=== PATIENT | male | born 1940 ===

== ENCOUNTER 2016-06-04 13:12 | Inpatient (IN) | payer MEDICARE ==
[2016-06-04 13:13] VITALS: BMI 31.7
[2016-06-04 13:58] LABS: BASO # 0.1 K/uL (0.0-0.2); BASO % 0.6 % (0.0-2.0); EOS # 0.1 K/uL (0.0-0.7); EOS % 0.8 % (0.0-4.0); HEMATOCRIT 41.2 % (35.0-51.0); LYMPH # 1.4 K/uL (1.0-4.3); LYMPH % 12.4 % (20.0-40.0); MEAN CELL VOLUME 90.8 fl (80.0-94.0); MEAN CORPUSCULAR HEMOGLOBIN 30.2 pg (27.0-31.0); MEAN CORPUSCULAR HGB CONC 33.3 g/dL (33.0-37.0); MEAN PLATELET VOLUME 10.7 fl (7.2-11.7); MONO # 0.7 K/uL (0.0-0.8); MONO % 6.4 % (0.0-10.0); NEUT % 79.8 % (50.0-75.0); RED CELL DISTRIBUTION WIDTH 13.2 % (11.5-14.5); WHITE BLOOD COUNT 11.3 K/uL (4.8-10.8)
[2016-06-04 14:04] LABS: ALB/GLOB RATIO 1.2 (1.0-2.1); ALKALINE PHOSPHATASE 88 U/L (38-126); ALT/SGPT 24 U/L (21-72); AST/SGOT 31 U/L (17-59); BILIRUBIN,TOTAL 1.3 mg/dl (0.2-1.3); BLOOD UREA NITROGEN 12 mg/dl (9-20); CALCIUM 9.3 mg/dL (8.4-10.2); CARBON DIOXIDE 27 mmol/L (22-30); CHLORIDE 102 mmol/L (98-107); GFR AFRICAN-AMERICAN > 60; GLUCOSE,RANDOM 108 mg/dL (75-110); POTASSIUM 3.6 MMOL/L (3.6-5.0); SODIUM 143 mmol/l (132-148); TOTAL PROTEIN 7.5 G/DL (6.3-8.2)
[2016-06-04 14:22] LABS: PARTIAL THROMBOPLASTIN TIME 25.4 SECONDS (23.3-32.5)
--- NOTE | 2016-06-04 14:52 | ED PDOC ---
HPI: Chest Pain Time Seen by Provider: 06/04/16 13:27 Chief Complaint (Nursing): Chest Pain Chief Complaint (Provider): Chest pain History Per: Patient, Family History/Exam Limitations: no limitations Onset/Duration Of Symptoms: Days (2) Current Symptoms Are (Timing): Intermittent Episodes Quality: Pressure Associated Symptoms: Dyspnea Additional Complaint(s): Pt reports intermittent pressure-like chest pain X 2 days, associated with nausea and intermittent SOB. Denies fever, cough, vomiting. Had echo done on . PMD: Dr. Calles Quenching Machine Operator: Dr. Masterson Past Medical History Reviewed: Nursing Documentation, Vital Signs Vital Signs: Last Vital Signs Temp 98.7 F 06/04/16 13:22 Pulse 76 06/04/16 13:22 Resp 16 06/04/16 13:22 BP 155/71 H 06/04/16 13:22 Pulse Ox 100 06/04/16 13:22 - Medical History PMH: Arthritis, Diabetes, HTN Denies: Chronic Kidney Disease - Surgical History Surgical History: Appendectomy (165) - Family History Family History: States: Hypertension - Living Arrangements Living Arrangements: With Family - Social History Current smoker - smoking cessation education provided: No Alcohol: None - Immunization History Hx Tetanus Toxoid Vaccination: No Hx Influenza Vaccination: No Hx Pneumococcal Vaccination: Yes - Home Medications Home Medications: Ambulatory Orders Medication Instructions Recorded metFORMIN [glucOPHAGE] 1,000 mg PO DAILY 07/28/14 amLODIPine [Norvasc] 10 mg PO DAILY #30 tab 07/31/14 - Allergies Allergies/Adverse Reactions: Allergies Allergy/AdvReac Type Severity Reaction Status Date / Time No Known Allergies Allergy Verified 06/04/16 13:26 KRYSTAL Risk Score for UA/NSTEMI - KRYSTAL Risk Score Age > 64: YES 3 or more CAD Risk Factors: YES Known CAD (Stenosis greater than 50%): YES Aspirin use in past 7 days: YES Severe Angina: NO EKG ST changes greater than 0.5mm: NO Positive Cardiac Marker: NO KRYSTAL Score: 4 Risk %: 20% Review of Systems Constitutional: Negative for: Fever, Chills Cardiovascular: Positive for: Chest Pain. Negative for: Palpitations Respiratory: Positive for: Shortness of Breath. Negative for: Cough Gastrointestinal: Positive for: Nausea. Negative for: Vomiting, Abdominal Pain , Diarrhea Musculoskeletal: Negative for: Neck Pain, Back Pain Neurological: Negative for: Headache Physical Exam - Reviewed Nursing Documentation Reviewed: Yes Vital Signs Reviewed: Yes - Physical Exam Appears: Positive for: Well, No Acute Distress Skin: Positive for: Normal Color, Warm, Dry Eye Exam: Positive for: Normal appearance, EOMI, PERRL Cardiovascular/Chest: Positive for: Regular Rate, Rhythm, Murmur Respiratory: Positive for: Normal Breath Sounds. Negative for: Rales, Stridor, Wheezing Gastrointestinal/Abdominal: Positive for: Normal Exam Extremity: Positive for: Normal ROM Neurologic/Psych: Positive for: Alert, office lead II-XII, Oriented. Negative for: Motor/Sensory Deficits - Laboratory Results Result Diagrams: 06/04/16 13:45 06/04/16 13:45 - ECG Interpretation Of ECG: NSR @ 74, no ST-T changes. O2 Sat by Pulse Oximetry: 100 Pulse Ox Interpretation: Normal - Radiology X-Ray: Read By Radiologist (Mild hazy opacities the lung bases. If indicated, PA and lateral chest radiographs can be obtained.) - Progress ED Course And Treament: Pt administered ASA 325 mg PO and Morphine 2 mg IV. - Physician Consult Information Physician Contacted: Reagan Masterson Outcome Of Conversation: Case discussed, Dr. Alonso for cardiac cath. Medical Decision Making Medical Decision Makin yo with chest pain. - labs - EKG - CXR Accession No. : [id number] Patient Name / ID : CAMERON NEFF / [id number] Exam Date : 05/23/2016 00:00:00 ( Approved ) Study Comment : Sex / Age : M / 75Y Creator : Alek Nam Dictator : Pre Fabricator : Drill Press Operator Numerical Control : Magdaleno Augustin Approver2 : Report Date : 05/23/2016 13:24:31 My Comment : APPROVED REPORT Protocol: LEXISCAN Test Type: Persantine Echo Medications: Prednisome 5mg, Vit D 92224 unit, Tramcinolone .1%, Losartan 100mg, Amlodipine 10mg, Meloxicam 15mg, Tamsulosin 0.4mg, Metformin ER 1000mg, Metanx, Miralax, Gabapentin 800mg, Voltarn 1%, Medical History: Hypertension, Diabetes, BPH, Carpal Tunnel Surgery, Appedectomy, Former Smoker, Arthirits, Leg pain, Vit D Deficiency, Target HR: 144 bpm Resting Heart Rate: 67 bpm Resting Blood Pressure: 152/71mmHg submaximum (85%): 122 bpm TEST SUMMARY PREINJECT PRE-INJEC 27:56 0.0 0.0 1.0 67 152/71 . 0 . INJECTION LEXISCAN 00:20 0.0 0.0 1.0 67 146/69 . 0 . INJECTION NS FLUSH 00:20 0.0 0.0 1.0 76 146/69 . 0 . INJECTION NUC MED 00:20 0.0 0.0 1.0 83 146/69 . 0 . RECOVERY POSTINJEC 03:37 0.0 0.0 1.0 78 116/60 . 0 . PROCEDURE Pharmacologic stress testing was performed using 0.4mg per 5ml of regadenoson given intravenously over 7-10 seconds. Reversal agent aminophyline 75 mg, given intravenously for Chest Pressure POST EXERCISE Reason for Termination: lexiscan Target HR: No Max HR: 83 bpm 59% of Maximum Predicted HR: 144 bpm Exercise duration: 01:00 min:sec, 0 Stage Exercise capacity: 1.0METs Max Blood Pressure: 158/85mmHg Chest Pain: Yes, Angina index: 0 Arrhythmia: Yes, ST Change: Yes, Deviation: 0 mm Stress EKG Interpretation Is a 75-year-old male undergoing a Lexiscan His resting EKG was normal. His resting heart rate was 67 bpm and his resting blood pressure was 152/71. The patient was injected with Lexiscan 0.4 mg IV followed by 30 mCi of Myoview. The procedure risks the patient experienced some mild chest pain which was alleviated by 75 mg of Aminophyllin 30 minutes later stress imaging was taken EXAM: Myocardial Perfusion REST/STRESS Image QualityGood Imaging Protocol The imaging protocol used to acquire images was Rest Tc-99m/stress Tc-99m 1 day Rest Spect myocardial perfusion imaging was performed in supine position 40 minutes following the injection of 10 mCi of Tc-99 Myoview. Time of rest injection: 8:49 Time of rest imagin:25 At peak stress, the patient was injected intravenously with 30mCi of Tc-99 tetrofosmin after an infusion time of minutes and seconds. Time of stress injection: 10:50 Time of stress imagin:50 Gated Stress Spect was performed 60 minutes after intravenous Tc-99 Myoview injection. The images were gated to evaluate regional wall motion and calculate ventricular ejection fraction. CONCLUSION 1. There is mild decreased perfusion in the inferior wall and a small area of the apical wall on stress imaging with near total reperfusion on resting imaging 2. Gated imaging shows good contractility of the powell of the left ventricle with an ejection fraction of 61%. 3. Conclusion: Abnormal Lexiscan with inferior wall and apical ischemia Accession No. : [id number] Patient Name / ID : CAMERON NEFF / [id number] Exam Date : 05/23/2016 09:16:12 ( Approved ) Study Comment : Sex / Age : M / 75Y Creator : Randall Crow Dictator : Pre Fabricator : Drill Press Operator Numerical Control : REAGAN Campbell Approver2 : Report Date : 05/23/2016 09:39:52 My Comment : APPROVED REPORT EXAM: Two-dimensional and M-mode echocardiogram with Doppler and color Doppler. Other Information Quality : Good Rhythm : NSR INDICATION ICD: R07.9 2D DIMENSIONS IVSd 1.03 (0.7-1.1cm) LVDd 5.19 (3.9-5.9cm) LVOT Diameter 2.50 (1.8-2.4cm) PWd 0.67 (0.7-1.1cm) IVSs 1.09 (0.8-1.2cm) LVDs 3.96 (2.5-4.0cm) FS (%) 23.7 % PWs 1.23 (0.8-1.2cm) M-Mode DIMENSIONS Left Atrium (MM) 3.31 (2.5-4.0cm) IVSd 1.03 (0.7-1.1cm) Aortic Root 3.41 (2.2-3.7cm) LVDd 5.86 (4.0-5.6cm) Aortic Cusp Exc. 2.75 (1.5-2.0cm) PWd 0.96 (0.7-1.1cm) IVSs 1.16 cm FS (%) 25 % LVDs 4.40 (2.0-3.8cm) PWs 1.42 cm Aortic Valve AI P 1/2 Time 488ms Mitral Valve MV E Velocity 83.0cm/s MV DECEL TIME 259ms MV A Velocity 76.4cm/s MV PHT 75ms E/A ratio 1.1 MVA (PHT) 2.93cm2 TDI Lateral E' Peak V 7.74cm/s Medial E' Peak V 7.50cm/s E/Lateral E' 10.7 E/Medial E' 11.1 Pulmonary Valve PV Peak Velocity 105.1cm/s Tricuspid Valve TR Peak Velocity 192cm/s RAP ESTIMATE 10mmHg TR Peak Gr. 15mmHg RVSP 25mmHg LEFT VENTRICLE The left ventricle is normal size. There is mild concentric left ventricular hypertrophy. The left ventricular function is normal. The left ventricular ejection fraction is within the normal range. LVEF 65%. There is normal LV segmental wall motion. The left ventricular diastolic function is normal. No left ventricle thrombus noted on this study. There is no ventricular septal defect visualized. There is no left ventricular aneurysm. There is no mass noted in the left ventricle. RIGHT VENTRICLE The right ventricle is normal size. There is normal right ventricular wall thickness. The right ventricular systolic function is normal. ATRIA The left atrium size is normal. The right atrium size is normal. The interatrial septum is intact with no evidence for an atrial septal defect. AORTIC VALVE The aortic valve is moderately thickened but opens well. There is mild to moderate aortic regurgitation. There is no aortic valvular stenosis. There is no aortic valvular vegetation. MITRAL VALVE The mitral valve is normal in structure and function. There is no evidence of mitral valve prolapse. There is no mitral valve stenosis. There is no mitral valve regurgitation noted. TRICUSPID VALVE The tricuspid valve is normal in structure and function. There is trace to mild tricuspid regurgitation. There is no tricuspid valve prolapse or vegetation. There is no tricuspid valve stenosis. PULMONIC VALVE The pulmonary valve is normal in structure and function. There is no pulmonic valvular regurgitation. There is no pulmonic valvular stenosis. GREAT VESSELS The aortic root is normal in size. The IVC is normal in size and collapses >50% with inspiration. PERICARDIAL EFFUSION The pericardium appears normal. There is no pleural effusion. <Conclusion> The aortic valve is moderately thickened but opens well. There is mild to moderate aortic regurgitation. The left ventricle is normal size. There is mild concentric left ventricular hypertrophy. The left ventricular function is normal. The left ventricular ejection fraction is within the normal range. LVEF 65%. Accession No. : [id number] Patient Name / ID : CAMERON NEFF / [id number] Exam Date : 05/23/2016 10:18:04 ( Approved ) Study Comment : Sex / Age : M / 75Y Creator : Chanell Pang Dictator : Pre Fabricator : Drill Press Operator Numerical Control : REAGAN Campbell Approver2 : Report Date : 05/25/2016 10:32:52 My Comment : APPROVED REPORT Reason for Test: R07.9 Hookup date: 2016-05-23 Removal date: 2016-05-24 Scan date: 2016-05-25 Recording time: 21 HR 55 MIN Heart Rate Data Total Beats: [id number] Min HR: 56 BPM at 4:30PM Avg HR: 77 BPM Max HR: 119 BPM at 2:48AM Ventricular Ectopy Total VE Beats: 4963 (4.9%) Triplets: 2 Events Couplets: 22 Events Single/Interp PVC: 2903/0 Single/Late VE's: 818/0 Bi/Trigeminy: 945/247 Beats Supraventricular Ectopy Total VE Beats: 38 (0.0%) Atrial Runs: 1 Beats: 4 Longest: 4 Fastest: 164 BPM Atrial Pairs: 1 Events Longest R-R: 1.4 sec at 7:03 AM Single PAC's: 32 Conclusion SINUS RHYTHM / SINUS BRADYCARDIA / SINUS TACHYCARDIA MINIMUM HR 56 BPM MAXIMUM HR 119 BPM ISOLATED APC'S, PAIRED, 1 RUN 4 BEATS, 164 BPM FREQUENT VPC'S, ISOLATED PAIRED, BIGEMINY, 2 TRIPLETS THERE WERE NO DIARY ENTRIES. Disposition - Clinical Impression Clinical Impression: Acute chest pain - Patient ED Disposition Is Patient to be Admitted: Yes - Disposition Disposition Time: 14:56 Condition: GUARDED - Pt Status Changed To: Hospital Disposition Of: Inpatient - Admit Certification Admit to Inpatient:: After my assessment, the patient will require hospitalization for at least two midnights. This is because of the severity of symptoms shown, intensity of services needed, and/or the medical risk in this patient being treated as an outpatient. - POA Present On Arrival: None
--- NOTE | 2016-06-04 14:54 | RAD ---
HISTORY: CP COMPARISON: No prior. FINDINGS: LUNGS: Mild hazy opacities at the lung bases. PLEURA: No significant pleural effusion identified, no pneumothorax apparent. CARDIOVASCULAR: Normal. OSSEOUS STRUCTURES: The osseous structures demonstrate degenerative changes. Sclerotic density overlying the right scapula. VISUALIZED UPPER ABDOMEN: Upper abdomen is suboptimally evaluated. OTHER FINDINGS: None. IMPRESSION: Mild hazy opacities the lung bases. If indicated, PA and lateral chest radiographs can be obtained.
--- NOTE | 2016-06-04 16:02 | CP.PCM.HP ---
History of Present Illness - History of Present Illness History of Present Illness: 75 yo male with history of DM2, HTN and CVA came in because of on and off chest pain radiating to the neck and both arms and hands since yesterday. Chest pain was described as tightening of the chest lasting for about 10 minutes then spontaneously getting relieved. He claimed he had 4 episodes since yesterday. He also noted getting nape pain during this episode. When he checked his BP, it was up to 240/140 which prompted to get in the ER. Patient claimed he is scheduled for a cardiac cath tomorrow with Dr Alonso. Present on Admission - Present on Admission Any Indicators Present on Admission: No History of DVT/PE: No History of Uncontrolled Diabetes: No Urinary Catheter: No Decubitus Ulcer Present: No Review of Systems - Review of Systems All systems: reviewed and no additional remarkable complaints except (aside from those mentioned above, 12 point system review were negative by me) Past Patient History - Past Medical History & Family History Past Medical History?: Yes - Past Social History Smoking Status: Never Smoked Chewing Tobacco Use: No Cigar Use: No Alcohol: Social - CARDIAC Hx Cardiac Disorders: Yes Hx Hypertension: Yes - PULMONARY Hx Respiratory Disorders: No - NEUROLOGICAL HX 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) - HEENT Hx HEENT Problems: Yes Other/Comment: 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 - RENAL Hx Chronic Kidney Disease: No - ENDOCRINE/METABOLIC Hx Diabetes Mellitus Type 2: Yes - HEMATOLOGICAL/ONCOLOGICAL Hx Blood Disorders: No - INTEGUMENTARY Hx Dermatological Problems: No - MUSCULOSKELETAL/RHEUMATOLOGICAL Hx Arthritis: Yes - GASTROINTESTINAL Hx Gastrointestinal Disorders: No - GENITOURINARY/GYNECOLOGICAL Hx Genitourinary Disorders: No - PSYCHIATRIC Hx Psychophysiologic Disorder: No Hx Substance Use: No - SURGICAL HISTORY Hx Appendectomy: Yes Other/Comment: carpal tunnel surgery on right hand - ANESTHESIA Hx Anesthesia: Yes Hx Anesthesia Reactions: No Hx Malignant Hyperthermia: No Meds Allergies/Adverse Reactions: Allergies Allergy/AdvReac Type Severity Reaction Status Date / Time No Known Allergies Allergy Verified 06/04/16 13:26 Physical Exam - Constitutional Appears: No Acute Distress - Head Exam Head Exam: ATRAUMATIC - Eye Exam Eye Exam: absent: Scleral icterus - ENT Exam Additional comments: left facial droop - Neck Exam Neck exam: Negative for: Meningismus - Respiratory Exam Respiratory Exam: absent: Rhonchi, Wheezes, Respiratory Distress - Cardiovascular Exam Cardiovascular Exam: REGULAR RHYTHM, +S1, +S2 - GI/Abdominal Exam GI & Abdominal Exam: Soft. absent: Tenderness - Rectal Exam Rectal Exam: Deferred - Neurological Exam Neurological exam: Alert, Oriented x3 Additional comments: left facial weakness - Psychiatric Exam Psychiatric exam: Normal Affect - Skin Skin Exam: Dry, Intact Results - Vital Signs Recent Vital Signs: Last Vital Signs Temp 98.7 F 06/04/16 15:37 Pulse 69 06/04/16 15:37 Resp 16 06/04/16 15:37 BP 150/67 06/04/16 15:37 Pulse Ox 100 06/04/16 15:36 - Labs Result Diagrams: 06/04/16 13:45 06/04/16 13:45 Assessment & Plan (1) Chest pain Status: Acute Comment: place on observation in telemetry. NTG SL prn for chest pain. Morphine 2mg IV q 4hrs prn for chest pain. ASA 81mg PO daily. Lopressor 25mg PO q 12hrs. Lipitor 10mg PO HS. serial Troponin. cardiology consult with Dr Alonso (2) Opacities of both lungs present on chest x-ray Status: Acute Comment: Blood culture x 2. repeat Chest Xray, PA and Lat in am. repeat CBC in am. Levaquin 500mg IV daily (3) Hypertension Status: Chronic Comment: BP stable. Losartan 100mg PO daily. Norvasc 10mg PO daily. Lopressor 25mg PO BID (4) DM2 (diabetes mellitus, type 2) Status: Chronic Comment: BS controlled. accuchek ACHS with low Lispro coverage. Metformin 1000mg PO daily. HgA1C, BMP in am. diabetic diet (5) DVT prophylaxis Status: Acute Comment: Lovenox 40mg SC daily
[2016-06-04] MEDS: Insulin Lispro (humaLOG) 100 Units/ml Inj SC SCH ×2 (18:14→22:24)
[2016-06-04] MEDS: Pantoprazole 40 mg EC Tab PO SCH (18:14)
[2016-06-04] MEDS: Enoxaparin 40 mg Syringe SC SCH (18:15)
[2016-06-04] MEDS ORDERED: Simethicone 80 mg Chewtab PO PRN (21:16)
[2016-06-05] MEDS: Insulin Lispro (humaLOG) 100 Units/ml Inj SC SCH ×3 (06:38→17:10)
[2016-06-05 07:29] LABS: BASO # 0.1 K/uL (0.0-0.2); BASO % 0.8 % (0.0-2.0); EOS # 0.3 K/uL (0.0-0.7); EOS % 2.3 % (0.0-4.0); HEMATOCRIT 37.1 % (35.0-51.0); LYMPH # 2.1 K/uL (1.0-4.3); LYMPH % 19.2 % (20.0-40.0); MEAN CELL VOLUME 91.1 fl (80.0-94.0); MEAN CORPUSCULAR HEMOGLOBIN 30.8 pg (27.0-31.0); MEAN CORPUSCULAR HGB CONC 33.8 g/dL (33.0-37.0); MEAN PLATELET VOLUME 11.2 fl (7.2-11.7); MONO # 1.2 K/uL (0.0-0.8); MONO % 10.9 % (0.0-10.0); NEUT # 7.2 K/uL (1.8-7.0); NEUT % 66.8 % (50.0-75.0); RED CELL DISTRIBUTION WIDTH 13.4 % (11.5-14.5); WHITE BLOOD COUNT 10.8 K/uL (4.8-10.8)
[2016-06-05 07:43] LABS: BLOOD UREA NITROGEN 15 mg/dl (9-20); CALCIUM 8.9 mg/dL (8.4-10.2); CARBON DIOXIDE 28 mmol/L (22-30); GFR AFRICAN-AMERICAN > 60; GLUCOSE,RANDOM 83 mg/dL (75-110); POTASSIUM 3.9 MMOL/L (3.6-5.0); SODIUM 139 mmol/l (132-148)
[2016-06-05 07:45] LABS: CHLORIDE 104 mmol/L (98-107)
[2016-06-05] MEDS: Enoxaparin 40 mg Syringe SC SCH (08:15)
[2016-06-05] MEDS: Pantoprazole 40 mg EC Tab PO SCH (08:15)
--- NOTE | 2016-06-05 15:09 | RAD ---
HISTORY: basal opacities COMPARISON: comparison chest 06/04/2016 TECHNIQUE: AP and lateral sitting erect views of the chest performed in wheelchair. FINDINGS: LUNGS: Low lung volumes with poor inspiration, crowded bronchovascular markings and suspected minor bibasilar atelectasis left greater than right PLEURA: Low lung volumes with poor inspiration, crowded bronchovascular markings and suspected minimal bibasilar atelectasis left greater than right. No significant pleural effusion identified. No pneumothorax apparent. CARDIOVASCULAR: Normal. OSSEOUS STRUCTURES: Mild degenerative osteoarthritis both shoulder girdles. . Multilevel degenerative spondylosis of the thoracic spine with bridging anterior osteophyte formation suggesting DISH. VISUALIZED UPPER ABDOMEN: Normal. OTHER FINDINGS: None. IMPRESSION: Low lung volumes with poor inspiration, crowded bronchovascular markings and suspected minimal bibasilar atelectasis left greater than right
--- NOTE | 2016-06-05 17:44 | CP.PCM.CON ---
History of Present Illness - History of Present Illness History of Present Illness: patient seen anson. presents with dyspnea on exertion. inferior reversible ischemia. will schedule cardiac cath. 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) - HEENT Hx HEENT Problems: Yes - RENAL Hx Chronic Kidney Disease: No - ENDOCRINE/METABOLIC Hx Endocrine Disorders: Yes Hx Diabetes Mellitus Type 2: Yes - HEMATOLOGICAL/ONCOLOGICAL Hx Blood Disorders: No Hx AIDS: No Hx Human Immunodeficiency Virus (HIV): No - INTEGUMENTARY Hx Dermatological Problems: No - MUSCULOSKELETAL/RHEUMATOLOGICAL Hx Musculoskeletal Disorders: Yes Hx Arthritis: Yes Hx Falls: No - GASTROINTESTINAL Hx Gastrointestinal Disorders: No - GENITOURINARY/GYNECOLOGICAL Hx Genitourinary Disorders: No - PSYCHIATRIC Hx Psychophysiologic Disorder: No Hx Substance Use: No - SURGICAL HISTORY Hx Appendectomy: Yes (1960) Other/Comment: carpal tunnel surgery on right hand 1981 - ANESTHESIA Hx Anesthesia: Yes Hx Anesthesia Reactions: No Hx Malignant Hyperthermia: No Meds Allergies/Adverse Reactions: Allergies Allergy/AdvReac Type Severity Reaction Status Date / Time No Known Allergies Allergy Verified 06/04/16 13:26 - Medications Medications: Current Medications Amlodipine Besylate (Norvasc) 10 mg PO DAILY [facility] Last Admin: 06/05/16 08:14 Dose: 10 mg Aspirin (Aspirin Chewable) 81 mg PO DAILY [facility] Last Admin: 06/05/16 08:17 Dose: 81 mg Atorvastatin Calcium (Lipitor) 10 mg PO HS [facility] Last Admin: 06/04/16 21:36 Dose: 10 mg Enoxaparin Sodium (Lovenox) 40 mg SC DAILY [facility] PRN Reason: Protocol Last Admin: 06/05/16 08:15 Dose: 40 mg Levofloxacin/Dextrose (Levaquin 500mg) 100 mls @ 100 mls/hr IVPB DAILY [facility] Last Admin: 06/05/16 08:23 Dose: 100 mls/hr Insulin Human Lispro (Humalog) 0 units SC ACHS [facility] PRN Reason: Protocol Last Admin: 06/05/16 17:10 Dose: Not Given Losartan Potassium (Cozaar) 100 mg PO DAILY [facility] Last Admin: 06/05/16 08:16 Dose: 100 mg Metformin HCl (Glucophage) 1,000 mg PO DAILY [facility] Last Admin: 06/05/16 08:20 Dose: 1,000 mg Metoprolol Tartrate (Lopressor) 25 mg PO Q12 [facility] Last Admin: 06/05/16 08:13 Dose: 25 mg Morphine Sulfate (Morphine) 2 mg IVP Q6 PRN PRN Reason: chest pain Nitroglycerin (Nitrostat Sl Tab) 0.4 mg SL Q5M PRN PRN Reason: chest pain Last Admin: 06/05/16 08:12 Dose: 0.4 mg Ondansetron HCl (Zofran Inj) 4 mg IVP Q6 PRN PRN Reason: Nausea/Vomiting Pantoprazole Sodium (Protonix Ec Tab) 40 mg PO DAILY [facility] Last Admin: 06/05/16 08:15 Dose: 40 mg Simethicone (Mylicon Chew Tab) 80 mg PO PCHS PRN PRN Reason: Flatulence Last Admin: 06/04/16 22:31 Dose: 80 mg Tamsulosin HCl (Flomax) 0.4 mg PO [facility] Last Admin: 06/04/16 23:00 Dose: 0.4 mg Results - Vital Signs Recent Vital Signs: Last Vital Signs Temp 98.3 F 06/05/16 17:03 Pulse 64 06/05/16 17:03 Resp 20 06/05/16 17:03 BP 145/64 06/05/16 17:03 Pulse Ox 99 06/05/16 17:03 - Labs Result Diagrams: 06/05/16 06:35 06/05/16 06:35 Labs: Laboratory Results - last 24 hr 06/04/16 06/04/16 06/04/16 18:09 21:21 23:09 WBC RBC Hgb Hct MCV MCH MCHC RDW Plt Count MPV Neut % (Auto) Lymph % (Auto) [place] % (Auto) Eos % (Auto) Baso % (Auto) Neut # Lymph # [place] # Eos # Baso # Sodium Potassium Chloride Carbon Dioxide Anion Gap BUN Creatinine Est GFR ( Amer) Est GFR (Non-Af Amer) POC Glucose (mg/dL) 200 H 76 Random Glucose Hemoglobin A1c Calcium Troponin I < 0.0120 06/05/16 06/05/16 06/05/16 01:15 05:37 06:35 WBC 10.8 RBC 4.07 L Hgb 12.6 Hct 37.1 MCV 91.1 MCH 30.8 MCHC 33.8 RDW 13.4 Plt Count 180 MPV 11.2 Neut % (Auto) 66.8 Lymph % (Auto) 19.2 L [place] % (Auto) 10.9 H Eos % (Auto) 2.3 Baso % (Auto) 0.8 Neut # 7.2 H Lymph # 2.1 [place] # 1.2 H Eos # 0.3 Baso # 0.1 Sodium 139 Potassium 3.9 Chloride 104 Carbon Dioxide 28 Anion Gap 11 BUN 15 Creatinine 0.8 Est GFR ( Amer) > 60 Est GFR (Non-Af Amer) > 60 POC Glucose (mg/dL) 80 82 Random Glucose 83 Hemoglobin A1c 5.8 Calcium 8.9 Troponin I 0.0170 06/05/16 06/05/16 11:57 16:52 WBC RBC Hgb Hct MCV MCH MCHC RDW Plt Count MPV Neut % (Auto) Lymph % (Auto) [place] % (Auto) Eos % (Auto) Baso % (Auto) Neut # Lymph # [place] # Eos # Baso # Sodium Potassium Chloride Carbon Dioxide Anion Gap BUN Creatinine Est GFR ( Amer) Est GFR (Non-Af Amer) POC Glucose (mg/dL) 110 103 Random Glucose Hemoglobin A1c Calcium Troponin I
--- NOTE | 2016-06-05 17:44 | CP.PCM.CON ---
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) - HEENT Hx HEENT Problems: Yes - RENAL Hx Chronic Kidney Disease: No - ENDOCRINE/METABOLIC Hx Endocrine Disorders: Yes Hx Diabetes Mellitus Type 2: Yes - HEMATOLOGICAL/ONCOLOGICAL Hx Blood Disorders: No Hx AIDS: No Hx Human Immunodeficiency Virus (HIV): No - INTEGUMENTARY Hx Dermatological Problems: No - MUSCULOSKELETAL/RHEUMATOLOGICAL Hx Musculoskeletal Disorders: Yes Hx Arthritis: Yes Hx Falls: No - GASTROINTESTINAL Hx Gastrointestinal Disorders: No - GENITOURINARY/GYNECOLOGICAL Hx Genitourinary Disorders: No - PSYCHIATRIC Hx Psychophysiologic Disorder: No Hx Substance Use: No - SURGICAL HISTORY Hx Appendectomy: Yes (1960) Other/Comment: carpal tunnel surgery on right hand 1981 - ANESTHESIA Hx Anesthesia: Yes Hx Anesthesia Reactions: No Hx Malignant Hyperthermia: No Meds Allergies/Adverse Reactions: Allergies Allergy/AdvReac Type Severity Reaction Status Date / Time No Known Allergies Allergy Verified 06/04/16 13:26 - Medications Medications: Current Medications Amlodipine Besylate (Norvasc) 10 mg PO DAILY [facility] Last Admin: 06/05/16 08:14 Dose: 10 mg Aspirin (Aspirin Chewable) 81 mg PO DAILY [facility] Last Admin: 06/05/16 08:17 Dose: 81 mg Atorvastatin Calcium (Lipitor) 10 mg PO HS [facility] Last Admin: 06/04/16 21:36 Dose: 10 mg Enoxaparin Sodium (Lovenox) 40 mg SC DAILY [facility] PRN Reason: Protocol Last Admin: 06/05/16 08:15 Dose: 40 mg Levofloxacin/Dextrose (Levaquin 500mg) 100 mls @ 100 mls/hr IVPB DAILY [facility] Last Admin: 06/05/16 08:23 Dose: 100 mls/hr Insulin Human Lispro (Humalog) 0 units SC ACHS [facility] PRN Reason: Protocol Last Admin: 06/05/16 17:10 Dose: Not Given Losartan Potassium (Cozaar) 100 mg PO DAILY [facility] Last Admin: 06/05/16 08:16 Dose: 100 mg Metformin HCl (Glucophage) 1,000 mg PO DAILY [facility] Last Admin: 06/05/16 08:20 Dose: 1,000 mg Metoprolol Tartrate (Lopressor) 25 mg PO Q12 [facility] Last Admin: 06/05/16 08:13 Dose: 25 mg Morphine Sulfate (Morphine) 2 mg IVP Q6 PRN PRN Reason: chest pain Nitroglycerin (Nitrostat Sl Tab) 0.4 mg SL Q5M PRN PRN Reason: chest pain Last Admin: 06/05/16 08:12 Dose: 0.4 mg Ondansetron HCl (Zofran Inj) 4 mg IVP Q6 PRN PRN Reason: Nausea/Vomiting Pantoprazole Sodium (Protonix Ec Tab) 40 mg PO DAILY [facility] Last Admin: 06/05/16 08:15 Dose: 40 mg Simethicone (Mylicon Chew Tab) 80 mg PO [facility] PRN PRN Reason: Flatulence Last Admin: 06/04/16 22:31 Dose: 80 mg Tamsulosin HCl (Flomax) 0.4 mg PO HS [facility] Last Admin: 06/04/16 23:00 Dose: 0.4 mg Results - Vital Signs Recent Vital Signs: Last Vital Signs Temp 98.3 F 06/05/16 17:03 Pulse 64 06/05/16 17:03 Resp 20 06/05/16 17:03 BP 145/64 06/05/16 17:03 Pulse Ox 99 06/05/16 17:03 - Labs Result Diagrams: 06/05/16 06:35 06/05/16 06:35 Labs: Laboratory Results - last 24 hr 06/04/16 06/04/16 06/04/16 18:09 21:21 23:09 WBC RBC Hgb Hct MCV MCH MCHC RDW Plt Count MPV Neut % (Auto) Lymph % (Auto) [place] % (Auto) Eos % (Auto) Baso % (Auto) Neut # Lymph # [place] # Eos # Baso # Sodium Potassium Chloride Carbon Dioxide Anion Gap BUN Creatinine Est GFR ( Amer) Est GFR (Non-Af Amer) POC Glucose (mg/dL) 200 H 76 Random Glucose Hemoglobin A1c Calcium Troponin I < 0.0120 06/05/16 06/05/16 06/05/16 01:15 05:37 06:35 WBC 10.8 RBC 4.07 L Hgb 12.6 Hct 37.1 MCV 91.1 MCH 30.8 MCHC 33.8 RDW 13.4 Plt Count 180 MPV 11.2 Neut % (Auto) 66.8 Lymph % (Auto) 19.2 L [place] % (Auto) 10.9 H Eos % (Auto) 2.3 Baso % (Auto) 0.8 Neut # 7.2 H Lymph # 2.1 [place] # 1.2 H Eos # 0.3 Baso # 0.1 Sodium 139 Potassium 3.9 Chloride 104 Carbon Dioxide 28 Anion Gap 11 BUN 15 Creatinine 0.8 Est GFR ( Amer) > 60 Est GFR (Non-Af Amer) > 60 POC Glucose (mg/dL) 80 82 Random Glucose 83 Hemoglobin A1c 5.8 Calcium 8.9 Troponin I 0.0170 06/05/16 06/05/16 11:57 16:52 WBC RBC Hgb Hct MCV MCH MCHC RDW Plt Count MPV Neut % (Auto) Lymph % (Auto) [place] % (Auto) Eos % (Auto) Baso % (Auto) Neut # Lymph # [place] # Eos # Baso # Sodium Potassium Chloride Carbon Dioxide Anion Gap BUN Creatinine Est GFR ( Amer) Est GFR (Non-Af Amer) POC Glucose (mg/dL) 110 103 Random Glucose Hemoglobin A1c Calcium Troponin I
--- NOTE | 2016-06-05 18:30 | CP.PCM.PN ---
Subjective - Date & Time of Evaluation Date of Evaluation: 06/05/16 Time of Evaluation: 18:00 - Subjective Subjective: Pt seen and examined. Had 2 episodes of chest pain in the morning. Still having dry cough. Objective - Vital Signs/Intake and Output Vital Signs (last 24 hours): Temp Pulse Resp BP Pulse Ox 98.3 F 64 20 145/64 99 06/05/16 17:03 06/05/16 17:03 06/05/16 17:03 06/05/16 17:03 06/05/16 17:03 - Medications Medications: Current Medications Amlodipine Besylate (Norvasc) 10 mg PO DAILY [facility] Last Admin: 06/05/16 08:14 Dose: 10 mg Aspirin (Aspirin Chewable) 81 mg PO DAILY [facility] Last Admin: 06/05/16 08:17 Dose: 81 mg Atorvastatin Calcium (Lipitor) 10 mg PO HS [facility] Last Admin: 06/04/16 21:36 Dose: 10 mg Enoxaparin Sodium (Lovenox) 40 mg SC DAILY [facility] PRN Reason: Protocol Last Admin: 06/05/16 08:15 Dose: 40 mg Levofloxacin/Dextrose (Levaquin 500mg) 100 mls @ 100 mls/hr IVPB DAILY [facility] Last Admin: 06/05/16 08:23 Dose: 100 mls/hr Insulin Human Lispro (Humalog) 0 units SC ACHS [facility] PRN Reason: Protocol Last Admin: 06/05/16 17:10 Dose: Not Given Losartan Potassium (Cozaar) 100 mg PO DAILY [facility] Last Admin: 06/05/16 08:16 Dose: 100 mg Metformin HCl (Glucophage) 1,000 mg PO DAILY [facility] Last Admin: 06/05/16 08:20 Dose: 1,000 mg Metoprolol Tartrate (Lopressor) 25 mg PO Q12 [facility] Last Admin: 06/05/16 08:13 Dose: 25 mg Morphine Sulfate (Morphine) 2 mg IVP Q6 PRN PRN Reason: chest pain Nitroglycerin (Nitrostat Sl Tab) 0.4 mg SL Q5M PRN PRN Reason: chest pain Last Admin: 06/05/16 08:12 Dose: 0.4 mg Ondansetron HCl (Zofran Inj) 4 mg IVP Q6 PRN PRN Reason: Nausea/Vomiting Pantoprazole Sodium (Protonix Ec Tab) 40 mg PO DAILY [facility] Last Admin: 06/05/16 08:15 Dose: 40 mg Simethicone (Mylicon Chew Tab) 80 mg PO [facility] PRN PRN Reason: Flatulence Last Admin: 06/04/16 22:31 Dose: 80 mg Tamsulosin HCl (Flomax) 0.4 mg PO HS [facility] Last Admin: 06/04/16 23:00 Dose: 0.4 mg - Labs Labs: 06/05/16 06:35 06/05/16 06:35 PT 10.8 SECONDS (9.6-11.2) 06/04/16 13:45 INR 1.04 (0.92-1.08) 06/04/16 13:45 APTT 25.4 SECONDS (23.3-32.5) 06/04/16 13:45 - Constitutional Appears: No Acute Distress - Head Exam Head Exam: ATRAUMATIC - Eye Exam Eye Exam: absent: Scleral icterus - ENT Exam ENT Exam: Mucous Membranes Moist - Neck Exam Neck Exam: absent: Meningismus - Respiratory Exam Respiratory Exam: absent: Rhonchi, Wheezes, Respiratory Distress - Cardiovascular Exam Cardiovascular Exam: REGULAR RHYTHM, +S1, +S2 - GI/Abdominal Exam GI & Abdominal Exam: Soft. absent: Tenderness - Rectal Exam Rectal Exam: Deferred - Neurological Exam Neurological Exam: Alert, Oriented x3 - Psychiatric Exam Psychiatric exam: Normal Affect - Skin Skin Exam: Dry, Intact Assessment and Plan (1) Chest pain Status: Acute (2) Opacities of both lungs present on chest x-ray Status: Acute (3) Hypertension Status: Chronic (4) DM2 (diabetes mellitus, type 2) Status: Chronic (5) DVT prophylaxis Status: Acute - Assessment and Plan (Free Text) Assessment: 75 yo male with history of DM2, HTN and CVA came in because of on and off chest pain radiating to the neck and both arms and hands. (1) Chest pain had episodes this morning which were relieved by SL NTG serial Troponins negative for ischemic events appreciate cardiology consult with Dr Alonso for cardiac cath tomorrow (2) Opacities of both lungs present on chest x-ray opacities described on previous CXray noted to be bilateral basal atelectasis on the follow up CXray patient remained afebrile and the slightly elevated WBC is back to normal DC Levaquin (3) Hypertension BP stable. Losartan 100mg PO daily. Norvasc 10mg PO daily. Lopressor 25mg PO BID (4) DM2 (diabetes mellitus, type 2) BS controlled. accuchek ACHS with low Lispro coverage. Metformin 1000mg PO daily. HgA1C 5.8 (5) DVT prophylaxis Lovenox 40mg SC daily
[2016-06-06] MEDS: Insulin Lispro (humaLOG) 100 Units/ml Inj SC SCH ×2 (08:35→13:15)
[2016-06-06] MEDS: Enoxaparin 40 mg Syringe SC SCH (08:35)
[2016-06-06] MEDS: Pantoprazole 40 mg EC Tab PO SCH (10:30)
[2016-06-06 15:08] VITALS: PULSE 59
[2016-06-06 15:44] VITALS: BP 166/66; RESP 20; TEMP 97.9; O2SAT 96
--- NOTE | 2016-06-06 15:48 | CP.PCM.DIS ---
Provider - Provider Date of Admission: 06/04/16 14:46 Attending physician: Jerod Glass MD Primary care physician: Romeo Calles MD Consults: Cardio: Dr Alonso Time Spent in preparation of Discharge (in minutes): 25 Diagnosis - Discharge Diagnosis (1) Chest pain Status: Acute (2) CAD (coronary atherosclerotic disease) Status: Acute (3) DM2 (diabetes mellitus, type 2) Status: Chronic (4) Hypertension Status: Chronic Hospital Course - Lab Results Lab Results: Micro Results 06/04/16 16:45 Blood-Venous Blood Culture - Preliminary NO GROWTH AFTER 24 HOURS Most Recent Lab Values WBC 10.8 K/uL (4.8-10.8) 06/05/16 06:35 RBC 4.07 Mil/uL (4.40-5.90) L 06/05/16 06:35 Hgb 12.6 g/dL (12.0-18.0) 06/05/16 06:35 Hct 37.1 % (35.0-51.0) 06/05/16 06:35 MCV 91.1 fl (80.0-94.0) 06/05/16 06:35 MCH 30.8 pg (27.0-31.0) 06/05/16 06:35 MCHC 33.8 g/dL (33.0-37.0) 06/05/16 06:35 RDW 13.4 % (11.5-14.5) 06/05/16 06:35 Plt Count 180 K/uL (130-400) 06/05/16 06:35 MPV 11.2 fl (7.2-11.7) 06/05/16 06:35 Neut % (Auto) 66.8 % (50.0-75.0) 06/05/16 06:35 Lymph % (Auto) 19.2 % (20.0-40.0) L 06/05/16 06:35 [place] % (Auto) 10.9 % (0.0-10.0) H 06/05/16 06:35 Eos % (Auto) 2.3 % (0.0-4.0) 06/05/16 06:35 Baso % (Auto) 0.8 % (0.0-2.0) 06/05/16 06:35 Neut # 7.2 K/uL (1.8-7.0) H 06/05/16 06:35 Lymph # 2.1 K/uL (1.0-4.3) 06/05/16 06:35 [place] # 1.2 K/uL (0.0-0.8) H 06/05/16 06:35 Eos # 0.3 K/uL (0.0-0.7) 06/05/16 06:35 Baso # 0.1 K/uL (0.0-0.2) 06/05/16 06:35 PT 10.8 SECONDS (9.6-11.2) 06/04/16 13:45 INR 1.04 (0.92-1.08) 06/04/16 13:45 APTT 25.4 SECONDS (23.3-32.5) 06/04/16 13:45 Sodium 139 mmol/l (132-148) 06/05/16 06:35 Potassium 3.9 MMOL/L (3.6-5.0) 06/05/16 06:35 Chloride 104 mmol/L (98-107) 06/05/16 06:35 Carbon Dioxide 28 mmol/L (22-30) 06/05/16 06:35 Anion Gap 11 (10-20) 06/05/16 06:35 BUN 15 mg/dl (9-20) 06/05/16 06:35 Creatinine 0.8 mg/dL (0.8-1.5) 06/05/16 06:35 Est GFR ( Amer) > 60 06/05/16 06:35 Est GFR (Non-Af Amer) > 60 06/05/16 06:35 POC Glucose (mg/dL) 114 mg/dL (65-110) H 06/06/16 05:35 Random Glucose 83 mg/dL (75-110) 06/05/16 06:35 Hemoglobin A1c 5.8 % (4.2-6.5) 06/05/16 06:35 Calcium 8.9 mg/dL (8.4-10.2) 06/05/16 06:35 Total Bilirubin 1.3 mg/dl (0.2-1.3) 06/04/16 13:45 AST 31 U/L (17-59) 06/04/16 13:45 ALT 24 U/L (21-72) 06/04/16 13:45 Alkaline Phosphatase 88 U/L (38-126) 06/04/16 13:45 Troponin I 0.0170 ng/mL (0.00-0.120) 06/05/16 06:35 Total Protein 7.5 G/DL (6.3-8.2) 06/04/16 13:45 Albumin 4.1 g/dL (3.5-5.0) 06/04/16 13:45 Globulin 3.4 gm/dL (2.2-3.9) 06/04/16 13:45 Albumin/Globulin Ratio 1.2 (1.0-2.1) 06/04/16 13:45 - Hospital Course Hospital Course: 75 y/o male with history of DM2, HTN and CVA came in because of on and off chest pain radiating to the neck and both arms and hands. Pt had recent Nuclear stes test done in May w/c showed reversible ischemia, apical and inferior wall ischemia. Admitted to Telemetry. Troponin x 3 negative. Cardio consulted- Dr Alonso - rec Cardiac cath. Pt underwent Cardiac cath - showed 2 vessel dis - plan for PCI next wk. (1) Chest Pain sec to Cornary Artery Dis- 2 vessel disease Trop x 3 neg Cardiac cath : 2 vessel dis Plan for PCI next wk cont ASA, start Plavix, BB< ARB, Statin (2) Opacities of both lungs present on chest x-ray sec to Atelectasis opacities described on previous CXray noted to be bilateral basal atelectasis on the follow up CXray patient remained afebrile and the slightly elevated WBC is back to normal (3) Hypertension BP stable. Losartan 100mg PO daily. Norvasc 10mg PO daily. Lopressor 25mg PO BID (4) DM2 (diabetes mellitus, type 2) BS controlled even without med accuchek ACHS with low Lispro coverage. Hold Metformin as pt had recent Cardiac cath HgA1C 5.8 (5) DVT prophylaxis Lovenox 40mg SC daily Discharge Exam - Head Exam Head Exam: ATRAUMATIC, NORMAL INSPECTION, NORMOCEPHALIC - Eye Exam Eye Exam: EOMI, Normal appearance Pupil Exam: NORMAL ACCOMODATION - ENT Exam ENT Exam: Mucous Membranes Moist, Normal External Ear Exam - Neck Exam Neck exam: Full Rom - Respiratory Exam Respiratory Exam: NORMAL BREATHING PATTERN. absent: Respiratory Distress - Cardiovascular Exam Cardiovascular Exam: REGULAR RHYTHM, +S1, +S2 - GI/Abdominal Exam GI & Abdominal Exam: Normal Bowel Sounds, Soft. absent: Tenderness Additional comments: Right groin site of LHC - no hematoma, no bleeding, dressing intact - Extremities Exam Extremities exam: normal capillary refill, pedal pulses present - Back Exam Back exam: FULL ROM. absent: CVA tenderness (L), CVA tenderness (R) - Neurological Exam Neurological exam: Alert, CN II-XII Intact, Oriented x3, Reflexes Normal - Psychiatric Exam Psychiatric exam: Normal Affect, Normal Mood - Skin Skin Exam: Dry, Normal Color, Warm Discharge Plan - Discharge Medications Prescriptions: Tamsulosin [Flomax] 0.4 mg PO HS #30 cap Atorvastatin [Lipitor] 10 mg PO HS #30 tab Metoprolol Tartrate [Lopressor] 25 mg PO Q12 #60 tab Famotidine [Pepcid] 20 mg PO DAILY #30 tab Clopidogrel [Plavix] 75 mg PO DAILY #30 tab - Follow Up Plan Condition: GOOD Disposition: HOME/ ROUTINE Instructions: Angina (DC), Coronary Artery Disease (DC), Heart Catheterization (GEN), Coronary Intravascular Stent Placement (GEN) Additional Instructions: ff up with Dr Calles in [address] Alonso for PCI/Stent Referrals: Romeo Calles MD [Primary Care Provider] - Danelle Alonso MD [Staff Provider] -
== END 2016-06-06 16:30 | disposition home or self-care (01) | DRG 287 ==
LOC: H.ER 13:12 → H.ERHOLD 14:46 → H.TEL 16:24
PROC: 4A023N7 Measurement of Cardiac Sampling and Pressure, Left Heart, Percutaneous Approach (ICD-10-PCS; principal; 2016-06-06)
PROC: B200YZZ Plain Radiography of Single Coronary Artery using Other Contrast (ICD-10-PCS; 2016-06-06)
DX: I25.119 Atherosclerotic heart disease of native coronary artery with unspecified angina pectoris (principal); J98.11 Atelectasis; E11.9 Type 2 diabetes mellitus without complications; I10 Essential (primary) hypertension; I69.392 Facial weakness following cerebral infarction; F17.210 Nicotine dependence, cigarettes, uncomplicated